=== PATIENT | female | born 1970 | race Caucasian/White ===

== ENCOUNTER → 2023-04-12 07:17 | Outpatient (REF) | payer OTHER, SELFPAY | LOC: RCS 07:17 | PROVIDERS: ATTENDING PHYSICIAN Internal Medicine Rheumatology; FAMILY PHYSICIAN Family Medicine | DX: M35.9 Systemic involvement of connective tissue, unspecified (principal); G60.9 Hereditary and idiopathic neuropathy, unspecified; Z79.899 Other long term (current) drug therapy; B94.8 Sequelae of other specified infectious and parasitic diseases | CPT/HCPCS: 93306 ==

== ENCOUNTER → 2023-04-22 08:47 | Outpatient (REF) | payer OTHER, SELFPAY | LOC: RSP 08:47 | PROVIDERS: ATTENDING PHYSICIAN Internal Medicine Rheumatology; FAMILY PHYSICIAN Family Medicine | DX: M35.9 Systemic involvement of connective tissue, unspecified (principal); G60.9 Hereditary and idiopathic neuropathy, unspecified; Z79.899 Other long term (current) drug therapy; I73.00 Raynaud's syndrome without gangrene; B94.8 Sequelae of other specified infectious and parasitic diseases | CPT/HCPCS: 94727; 94729; 88738; 94010 ==

== ENCOUNTER → 2023-08-09 13:32 | Outpatient (REF) | payer OTHER, SELFPAY | LOC: WDC 13:32 | PROVIDERS: ATTENDING PHYSICIAN Nurse Practitioner Adult Health; FAMILY PHYSICIAN Family Medicine | DX: Z12.31 Encounter for screening mammogram for malignant neoplasm of breast (principal) | CPT/HCPCS: 77063; 77067 ==

== ENCOUNTER → 2023-12-23 11:44 | Outpatient (REF) | payer OTHER, SELFPAY ==
[2023-12-23 14:02] LABS: C-Reactive Protein < 5.00 mg/L (0.0-10.00)
[2023-12-23 14:43] LABS: Erythrocyte Sed Rate 10 mm/hour (0-20)
== END ==
LOC: REG 11:44
PROVIDERS: ATTENDING PHYSICIAN Physician Assistant
DX: R51.9 Headache, unspecified (principal)
CPT/HCPCS: 36415; 85652; 86140

== ENCOUNTER 2023-12-23 19:12 | Emergency (ER) | payer OTHER, SELFPAY ==
[2023-12-23 19:25] VITALS: BP 154/101
--- NOTE | 2023-12-23 20:39 | ED.GENMED ---
History of Present Illness
General
Chief Complaint: Ear Problem
Time Seen by Provider: 12/23/23 20:14
History of Present Illness
History of Present Illness:
53-year-old female without significant past medical history presenting to the emergency department for left-sided ear pain. Patient reports 4 days ago she started to have pain in her left ear. She saw her doctor who started her on an eardrop,
however noted that she did not see any significant sign of infection. Yesterday, she started to get sores in her mouth and started to feel numbness in the left side of her face. Today, developed a rash on the outside of her face only on the left
side. She again followed up with her doctor, blood work completed that was negative and was started on an oral antibiotic. Symptoms have been worsening. She describes the pain as a sharp pain, likens it to a 'nerve pain '. She reports about a
week ago she was having viral type symptoms, have since resolved. Denies any fever, chest pain, difficulty breathing, or additional acute medical complaints.
Past History
Past History
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
ED Past Surgical History: None
Social History
Tobacco: Non-smoker
Alcohol: Occasional
Personal:
Living: with family
Phy Exam
Physical Exam
Physical Exam:
General: Well-appearing, no clinical signs of dehydration, nontoxic and in no acute distress
HEENT: protecting airway, no erythema or redness to the left ear canal. No tenderness to the tragus, or mastoid. Vesicular rash to the left side of the face, particularly the left side of the chin.
Neck: appears supple
CV: Normal heart rate
Resp: No accessory muscle use, no increased work of breathing
Abd: no distension
Extremities: No deformities, no swelling
Neuro: alert, no focal neurologic deficit
: deferred
Rectal: deferred
Psych: Normal affect
Skin: Intact
Course
Orders/Labs/Results
Orders:
Orders
10/24/24 19:29
EKG [Electrocardiogram (*1)] Urgent
Reason for Study: Other
Other Reason for Exam: jaw pain and numbness
EKG- Treatment ONCE
12/23/23 20:35
Prednisone [Deltasone] 60 mg PO NOW STA
Valacyclovir HCl [Valtrex] 1,000 mg PO ONCE ONE
Vital Signs
Initial and Last Documented VS:
Initial Vital Signs
Temp Pulse Resp BP Pulse Ox
97.9 F 94 15 154/101 99
12/23/23 19:25 12/23/23 19:25 12/23/23 19:25 12/23/23 19:25 12/23/23 19:25
Last Documented Vital Signs
Temp Pulse Resp BP Pulse Ox
97.9 F 94 15 154/101 99
12/23/23 19:25 12/23/23 19:25 12/23/23 19:25 12/23/23 19:25 12/23/23 19:25
MDM/Problems Addressed
MDM/Problems Addressed:
53-year-old female presenting to the emergency department with left ear pain, sharp and shooting, now with development of rash to the left side of her face. Vital signs are significant for mild hypertension.
On exam, patient well-appearing, nontoxic. Examination appears most consistent with herpes zoster. Patient has vesicular lesions to the left side of the face, nerve pain, reports some numbness to the left side of the face. No obvious intra
auricular lesions. Suspected developing [place] Segura syndrome. Will start patient on valacyclovir and prednisone. Otherwise feel stable for discharge with continued outpatient follow-up with her primary care doctor. Strict return precautions
communicated and patient verbalized understanding
*EKG
Interpreted by ED Provider?: Yes
EKG Intrepretation Date: 12/23/23
EKG Intrepretation Time: 20:47
Interpretation: normal
Comparison EKG: no comparison EKG present
Heart Rate: 77
Rate: normal
Rhythm: sinus
Adah: normal axis
Interval: normal interval
QRS Pattern: normal QRS
Ischemia: no ischemia
*Critical Care Note
Total Time (30-74mins, 75-104mins- exclusive of procedures): Not Applicable
ED Attending Note
-
Portions of this chart may have been created with voice recognition software.� Occasional wrong word or��sound alike� substitutions may have occurred due to the inherent limitations of voice recognition software.
Discharge Plan
Departure
Patient Disposition: Home (Routine Discharge)
Date of Disposition: 12/23/23
Time of Disposition: 20:47
Patient with high blood pressure during this ER visit?: Yes
Condition: Good
Discharge Problem:
Herpes zoster virus infection of face and ear nerves
Instructions: Shingles
Prescriptions:
New
valacyclovir 1 gram tablet
1,000 mg PO TID 7 Days Qty: 21 0RF
prednisone 20 mg tablet
60 mg PO DAILY 7 Days Qty: 21 0RF
No Action
amlodipine 2.5 MG tablet
2.5 mg PO DAILY
pentoxifylline 400 MG tablet extended release
400 mg PO DAILY
nortriptyline [Pamelor] 25 MG capsule
25 mg PO HS
vitamin B complex 1 TAB tablet
1 tab PO DAILY
omega 2-snl-ljt-fish oil [Fish Oil] 1 EACH capsule
1 ea PO DAILY
ibuprofen [Advil] 200 MG tablet
200 mg PO PRN PRN (Reason: pain)
multivitamin 1 EACH tablet
1 ea PO DAILY
cholecalciferol (vitamin D3) 2,000 UNITS tablet
3,000 units PO DAILY
Referrals:
Odalys Garnica PA-C [Family Provider] -
Activity Restrictions/Additional Instructions:
You were seen in the emergency department for left ear pain and rash
You were found to have herpes zoster
Please follow-up closely with your primary care physician.
Return to the emergency department for any worsening of your symptoms including worsening ear pain, any involvement of the eye or changes in vision of your eye, or any development of chest pain, difficulty breathing, abdominal pain with persistent
vomiting and inability to tolerate food or liquid by mouth (concern for dehydration), weakness, headache or confusion, fever greater than 100.4, or any additional symptoms that are concerning to you.
Thank you for choosing [facility].
Interventions
Interventions:
*Risk Screen - Suicide Last Done: 12/23/23 19:25
*General Assessment Last Done: 12/23/23 19:25
*Neglect/Abuse Screening Last Done: 12/23/23 19:25
Discharge Date and Time
Print Language: GREEK
[2023-12-23] MEDS: VALTREX 1000 MG PO (20:57)
[2023-12-23] MEDS: DELTASONE 60 MG PO (20:57)
== END 2023-12-23 21:25 | disposition home or self-care (01) ==
LOC: EMR 19:12
PROVIDERS: EMERGENCY PHYSICIAN Student in an Organized Health Care Education/Training Program; FAMILY PHYSICIAN Physician Assistant
DX: B02.9 Zoster without complications (principal); I10 Essential (primary) hypertension
CPT/HCPCS: 99283; 93005

== ENCOUNTER → 2024-08-09 14:35 | Outpatient (REF) | payer OTHER, SELFPAY | LOC: WDC 14:35 | PROVIDERS: ATTENDING PHYSICIAN Nurse Practitioner Adult Health; FAMILY PHYSICIAN Family Medicine | DX: Z12.31 Encounter for screening mammogram for malignant neoplasm of breast (principal) | CPT/HCPCS: 77063; 77067 ==

== ENCOUNTER → 2024-09-22 13:39 | Outpatient (REF) | payer OTHER, SELFPAY | LOC: RAD 13:39 | PROVIDERS: ATTENDING PHYSICIAN Internal Medicine Rheumatology; FAMILY PHYSICIAN Family Medicine | DX: M35.9 Systemic involvement of connective tissue, unspecified (principal); G60.9 Hereditary and idiopathic neuropathy, unspecified; Z79.60 Long term (current) use of unspecified immunomodulators and immunosuppressants; I73.00 Raynaud's syndrome without gangrene; E87.1 Hypo-osmolality and hyponatremia | CPT/HCPCS: 73130; 73564; 73620 ==

== ENCOUNTER 2024-09-23 22:08 | Emergency (ER) | payer OTHER, SELFPAY ==
[2024-09-23 22:13] VITALS: BP 133/86
--- NOTE | 2024-09-23 23:40 | ED.GENMED ---
History of Present Illness
General
Chief Complaint: DVT/Possible Blood Clot
Source: patient
Time Seen by Provider: 09/23/24 23:03
History of Present Illness
History of Present Illness:
54-year-old female presents to emergency room complaining of discomfort and swelling left lower extremity. Patient noticed some knee discomfort 2 days ago. This progressed to the discomfort in the back of her calf and also felt like her left lower
leg was somewhat swollen or tight. No chest pain or shortness of breath. Patient does take hormone replacement therapy and changed her regimen couple weeks ago. No fever, chills, nausea or vomiting. Patient denies any recent travel or periods of
immobilization
Past History
Past History
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
ED Past Surgical History: None
Social History
Tobacco: Non-smoker
Alcohol: Occasional
Personal:
Living: with family
Phy Exam
Physical Exam
Physical Exam:
General: Awake, Alert, Oriented X3. No acute distress.
Vitals: unremarkable
Head: Atraumatic
Eyes: Pupils equal, EOMI
Neck: Trachea midline
Lungs: Clear and equal b/l
Heart: Regular rate, no murmurs
Neuro: Nonfocal
Skin: Warm, dry, no rash
Extremities: pulses equal b/l, left leg seems mildly swollen compared to the right. Mild tenderness to palpation posterior calf.
Course
Orders/Labs/Results
Orders:
Orders
09/23/24 23:58
Basic Metabolic Panel Urgent
Complete Blood Count/With Diff Urgent
09/24/24 23:08
US Periph Venous LOWER Ext LT Urgent
Reason For Exam: pain. swelling
Abnormal Lab Results
09/23/24
23:58
RBC 3.51 L 10^6/uL
(4.20-5.40)
Hgb 11.5 L g/dL
(12.0-16.0)
Hct 33.7 L %
(37.0-47.0)
MCH 32.8 H pg
(27.0-31.0)
Absolute Lymphs (auto) 1.1 L 10^3/uL
(1.2-3.4)
Absolute Monos (auto) 0.8 H 10^3/uL
(0.1-0.6)
Lymphocytes % 17.8 L %
(20.5-51.1)
Monocytes % 13.0 H %
(1.7-9.3)
BUN 18 H mg/dl
(7-17)
09/23/24 23:58
09/23/24 23:58
Vital Signs
Initial and Last Documented VS:
Initial Vital Signs
Temp Pulse Resp BP Pulse Ox
98.5 F 78 20 133/86 98
09/23/24 22:13 09/23/24 22:13 09/23/24 22:13 09/23/24 22:13 09/23/24 22:13
Last Documented Vital Signs
Temp Pulse Resp BP Pulse Ox
98.5 F 78 20 133/86 98
09/23/24 22:13 09/23/24 22:13 09/23/24 22:13 09/23/24 22:13 09/24/24 00:01
MDM/Problems Addressed
Differential Diagnosis Includes:
DVT, muscle strain, venous insufficiency
MDM/Problems Addressed:
Patient presents with left lower extremity pain, swelling. DVT study is negative. Labs are reassuring. Recommend compression socks. Follow-up with primary care
*Radiology
Radiology exam reviewed: radiology read reviewed
*Pulse Oximetry
SaO2: 98
Oxygen Mode of Delivery: Room air
Patient hypoxic: no
*Critical Care Note
Total Time (30-74mins, 75-104mins- exclusive of procedures): Not Applicable
ED Attending Note
-
Portions of this chart may have been created with voice recognition software.� Occasional wrong word or��sound alike� substitutions may have occurred due to the inherent limitations of voice recognition software.
Discharge Plan
Departure
Patient Disposition: Home (Routine Discharge)
Date of Disposition: 09/24/24
Time of Disposition: 01:11
Patient with high blood pressure during this ER visit?: Yes
Condition: Good
Discharge Problem:
Leg pain, Swelling
Instructions: Swelling, BLOOD PRESSURE
Prescriptions:
No Action
amlodipine 2.5 MG tablet
2.5 mg PO DAILY
pentoxifylline 400 MG tablet extended release
400 mg PO DAILY
nortriptyline [Pamelor] 25 MG capsule
25 mg PO HS
vitamin B complex 1 TAB tablet
1 tab PO DAILY
omega 7-vym-pki-fish oil [Fish Oil] 1 EACH capsule
1 ea PO DAILY
ibuprofen [Advil] 200 MG tablet
200 mg PO PRN PRN (Reason: pain)
multivitamin 1 EACH tablet
1 ea PO DAILY
cholecalciferol (vitamin D3) 2,000 UNITS tablet
3,000 units PO DAILY
valacyclovir 1 gram tablet
1,000 mg PO TID 7 Days Qty: 21 0RF
prednisone 20 mg tablet
60 mg PO DAILY 7 Days Qty: 21 0RF
Referrals:
Reagan Hernandez MD [Family Provider, Family Practice]
Interventions
Interventions:
*Risk Screen - Suicide Last Done: 09/23/24 22:13
*General Assessment Last Done: 09/23/24 22:13
*Neglect/Abuse Screening Last Done: 09/23/24 22:13
*ED- Fall Risk Assessment Last Done: 09/23/24 22:13
*ED COVID-19 Vaccine History Last Done: 09/23/24 22:13
*Nursing Disposition Last Done: 09/24/24 01:26
ED-Skin Assessment Last Done: 09/24/24 00:01
ED-Peripheral Vascular Assessment Last Done: 09/24/24 00:01
ED- Pulmonary Assessment Last Done: 09/24/24 00:01
ED- Cardiac Assessment Last Done: 09/24/24 00:01
Discharge Date and Time
Discharge Date/Time: 09/24/24 01:27
Print Language: [place]
[2024-09-23 23:59] VITALS: BMI 26.1
[2024-09-24 00:03] LABS: Hematocrit 33.7 % (37.0-47.0); Hemoglobin 11.5 g/dL (12.0-16.0); Mean Corp Hgb Conc. 34.1 g/dL (33.0-37.0); Mean Corpuscular Volume 96.0 fL (81.0-99.0); Nucleated Red Blood Cells % 0 %; Platelet Count 211 10^3/uL (130-400); Red Cell Dist. Width 12.3 % (11.5-14.5)
[2024-09-24 00:31] LABS: Blood Urea Nitrogen 18 mg/dl (7-17); Calcium 9.4 mg/dl (8.4-10.2); Carbon Dioxide 25 mmol/L (22-30); Chloride 104 mmol/L (98-107); Estimated Creatinine Clearance 92 ml/min; Glucose 89 mg/dl (70-99); Potassium 4.3 mmol/L (3.5-5.1); Sodium 135 mmol/L (135-145); eGFR > 60.00
== END 2024-09-24 01:27 | disposition home or self-care (01) ==
LOC: EMR 22:08
PROVIDERS: EMERGENCY PHYSICIAN Emergency Medicine; FAMILY PHYSICIAN Family Medicine
DX: R22.42 Localized swelling, mass and lump, left lower limb (principal); Z79.890 Hormone replacement therapy
CPT/HCPCS: 99284; 80048; 85025; 93971